=== PATIENT | female | born 2000 | race Two or more races ===

== ENCOUNTER 2022-07-19 04:05 | Day surgery (SDC) | payer MEDICAID ==
[2022-07-19 04:31] VITALS: BMI 35.5
[2022-07-19] MEDS ORDERED: hydrALAZINE 20 MG/ML VIAL SLOW IVP PRN (05:07)
[2022-07-19 05:35] LABS: Bilirubin Neg (Negative); Blood, Urine Negative (Negative); Clarity Clear (Clear); Glucose, Urine (Dipstick) Normal (Negative); Ketone, Urine Negative (Negative); Leukocyte Negative (Negative); Nitrite Negative (Negative); Protein, Urine (Dipstick) Negative (Neg-Trace); Urobilinogen Normal mg/dL (Less than 2); pH, Urine 6.5 (5.0-9.0)
[2022-07-19 05:50] LABS: Fetal Membranes Rupture No Membranes Rupture (No Rupture)
== END 2022-07-19 08:35 | disposition home or self-care (01) ==
LOC: CSHLD/OP 04:05
PROVIDERS: ATTEND Obstetrics & Gynecology
DX: O26.893 Other specified pregnancy related conditions, third trimester (principal); M54.9 Dorsalgia, unspecified; R35.0 Frequency of micturition; O99.513 Diseases of the respiratory system complicating pregnancy, third trimester; J45.909 Unspecified asthma, uncomplicated; Z3A.30 30 weeks gestation of pregnancy
CPT/HCPCS: 81003; 84112; 87480; 87510; 87660; 99285